=== PATIENT | male | born 1940 | race Caucasian/White ===

== ENCOUNTER 2017-10-13 08:54 | Day surgery (SDC) | payer MEDICARE ==
[~2017-10-13 08:54] MED LIST: ACETAMINOPHEN 325 MG TAB PO; MIDAZOLAM INJ 2 MG/2 ML VIAL (J2250) As Ordered; PROPARACAINE 0.5% OPHTH SOL 15ML OS; fentaNYL 100 MCG/2 ML INJECTION (J3010) As Ordered
[2017-10-13] MEDS ORDERED: TROPICAMIDE 1% OPHTH SOLN 2ML As Ordered (09:08)
[2017-10-13] MEDS ORDERED: PHENYLEPHRINE 2.5% OPHTH SOL 2ML As Ordered (09:08)
[2017-10-13] MEDS ORDERED: CYCLOPENTOLATE 2% OPHTH SOLN 2ML BTL As Ordered (09:08)
[2017-10-13] MEDS ORDERED: OFLOXACIN 0.3 % (OCUFLOX) OPTH SOL 5ML As Ordered (09:08)
[2017-10-13] MEDS ORDERED: TRIMETHOBENZAMIDE 300 MG CAP PO (09:15)
[2017-10-13] MEDS: PHENYLEPHRINE 2.5% OPHTH SOL 2ML OS (09:21)
[2017-10-13] MEDS: CYCLOPENTOLATE 2% OPHTH SOLN 2ML BTL OS (09:21)
[2017-10-13] MEDS: OFLOXACIN 0.3 % (OCUFLOX) OPTH SOL 5ML OS (09:22)
[2017-10-13] MEDS: TROPICAMIDE 1% OPHTH SOLN 2ML OS (09:22)
[2017-10-13] MEDS: LIDOCAINE 3.5 % 1ML OPHTH TOPICAL GEL OU (09:22)
[2017-10-13 09:42] LABS: BEDSIDE GLUCOSE 157 MG/DL (83-110)
[2017-10-13] MEDS: PHENYLEPHRINE HCL 10 % OPHTH. SOL 5ML OS (10:04)
[2017-10-13] MEDS: HEALON DUET (HEALON 10MG/ML 0.55ML & HEALON ENDOCOAT 30MG/ML 0.85ML) As Ordered (10:33)
[2017-10-13] MEDS: POVIDONE-IODINE 5% OPHTH PREP SOL 30ML As Ordered (10:33)
[2017-10-13] MEDS: BALANCED SALT IRRIGATION SOLUTION 500ML BAG (FOR OR EYE MACHINE) As Ordered (10:33)
[2017-10-13] MEDS: LIDOCAINE 1% SDV 5 ML VIAL As Ordered (10:34)
[2017-10-13] MEDS: CEFUROXIME 1MG/0.1ML INTRACAMERAL INJ As Ordered (10:34)
[2017-10-13] MEDS ORDERED: PROPOFOL 200 MG/20 ML VIAL As Ordered (10:41)
[2017-10-13] MEDS: KETOROLAC 0.5% OPHTH SOLN OS (11:07)
[2017-10-13 11:11] LABS: BEDSIDE GLUCOSE 135 MG/DL (83-110)
[2017-10-13] MEDS ORDERED: ONDANSETRON 4MG/2ML VIAL (J2405) IV (11:30)
[2017-10-13] MEDS: AcetaZOLAMIDE 500 MG ER CAP PO (11:45)
== END 2017-10-13 12:50 | disposition home or self-care (01) ==
LOC: M SDC 08:54
DX: H25.12 Age-related nuclear cataract, left eye (principal); I10 Essential (primary) hypertension; E11.9 Type 2 diabetes mellitus without complications; E78.5 Hyperlipidemia, unspecified; F41.9 Anxiety disorder, unspecified; Z79.4 Long term (current) use of insulin; Z79.82 Long term (current) use of aspirin; Z92.21 Personal history of antineoplastic chemotherapy; Z92.3 Personal history of irradiation; Z79.899 Other long term (current) drug therapy; Z87.891 Personal history of nicotine dependence
CPT/HCPCS: 66984